=== PATIENT | male | born 1970 | race American Indian/Alaskan Native ===

== ENCOUNTER 2017-01-24 09:36 | Emergency (ER) | payer SELFPAY ==
[2017-01-24 09:47] VITALS: BP 149/107
[2017-01-24] MEDS ORDERED: ZITHROMAX PO ONE (10:36)
[2017-01-24] MEDS ORDERED: XYLOCAINE 1% MPF 5 mL INFILTRATI ONE (10:36)
[2017-01-24] MEDS ORDERED: ROCEPHIN IM ONE (10:36)
--- NOTE | 2017-01-24 10:41 | Emergency Department Report ---
ED Male HPI - General Chief complaint: Urogenital-Male Stated complaint: BURNING ON URINATION Time Seen by Provider: 01/24/17 10:34 Source: patient Mode of arrival: Ambulatory Limitations: No Limitations - History of Present Illness Initial comments: PT states he received unprotected oral sex almost 2 weeks ago. PT reports a gradual onset of dysuria x 5 days. PT states he not has dysuria with every urination. PT states he does not have a discharge/ rash/ or other other symptoms. MD Complaint: dysuria -: Gradual, days(s) Location: penis Severity scale (0 -10): 3 Quality: burning Consistency: constant Worsens with: urination denies other symptoms. denies: discharge, swelling, mass, rash, blood in urine , dysuria, nausea/vomiting - Related Data Sexually active: Yes Previous Rx's Medication Instructions Recorded Last Taken Type methOCARBAMOL [Robaxin] 500 mg PO BID #14 tab 09/29/13 Unknown Rx oxyCODONE /ACETAMINOPHEN [Percocet 1 tab PO Q6HR PRN #14 tablet 09/29/13 Unknown Rx 5/325 mg] Allergies Allergy/AdvReac Type Severity Reaction Status Date / Time shellfish derived Allergy Unknown Verified 09/29/13 04:23 ED Review of Systems ROS: Stated complaint: BURNING ON URINATION Other details as noted in HPI Comment: All other systems reviewed and negative Constitutional: denies: chills, fever Respiratory: denies: cough Cardiovascular: denies: chest pain Gastrointestinal: denies: abdominal pain, nausea, vomiting Genitourinary: as per HPI, dysuria. denies: discharge, testicular pain, testicular mass ED Past Medical Hx - Past Medical History Previous Medical History?: No - Surgical History Past Surgical History?: Yes Additional Surgical History: right shoulder pain and surgery - Social History Smoking Status: Current Every Day Smoker Substance Use Type: Alcohol, Non Opiate Pain - Medications Home Medications: Home Medications Medication Instructions Recorded Confirmed Last Taken Type methOCARBAMOL [Robaxin] 500 mg PO BID #14 tab 09/29/13 Unknown Rx oxyCODONE /ACETAMINOPHEN [Percocet 1 tab PO Q6HR PRN #14 tablet 09/29/13 Unknown Rx 5/325 mg] ED Physical Exam - General Limitations: No Limitations General appearance: alert, in no apparent distress - Head Head exam: Present: atraumatic, normocephalic, normal inspection - Eye Eye exam: Present: normal appearance, PERRL, EOMI. Absent: conjunctival injection - ENT ENT exam: Present: normal exam, TM's normal bilaterally - Neck Neck exam: Present: normal inspection, full ROM - Respiratory Respiratory exam: Present: normal lung sounds bilaterally. Absent: respiratory distress, wheezes, rales - Cardiovascular Cardiovascular Exam: Present: regular rate, normal rhythm, normal heart sounds - GI/Abdominal GI/Abdominal exam: Present: soft. Absent: tenderness - Extremities Exam Extremities exam: Present: normal inspection, full ROM - Back Exam Back exam: Present: normal inspection, full ROM. Absent: tenderness, CVA tenderness (R), CVA tenderness (L) - Neurological Exam Neurological exam: Present: alert, oriented X3, normal gait - Psychiatric Psychiatric exam: Present: normal affect, normal mood - Skin Skin exam: Present: warm, dry, intact ED Course Vital Signs 01/24/17 09:44 Temperature 98 F Pulse Rate 72 Respiratory 18 Rate Blood Pressure 149/107 O2 Sat by Pulse 99 Oximetry - Reevaluation(s) Reevaluation #1: 01/24/17 10:41 PT aware of plan of care. PT has no questions at this time. Reevaluation #2: 01/24/17 10:54 PT states the situation has him stressed and he believes that is why his bp is elevated. PT aware he will need to have his bp rechecked at follow up. - Pulse Oximetry Interpretation Digit-Finger Initial Pulse Oximetry Readin Actions Taken: none ED Medical Decision Making - Differential Diagnosis std, Critical Care Time: No Critical care attestation.: If time is entered above; I have spent that time in minutes in the direct care of this critically ill patient, excluding procedure time. ED Disposition Clinical Impression: Risky sexual behavior, Dysuria Disposition: DC-01 TO HOME OR SELFCARE Is pt being admited?: No Does the pt Need Aspirin: No Condition: Stable Instructions: Sexually Transmitted Diseases (ED), Safe Sex (ED) Additional Instructions: No sex X 7 days Use a barrier method to prevent STD transmission Your partners may need testing /treatment Follow up with your PCP in 3-5 days for BP recheck and full panel STD testing Follow up with medical records in 3-5 days for copies of your lab work Referrals: PRIMARY CARE, [Primary Care Provider] - 3-5 Days DICRISTINA,[place], MD [Staff Physician] - 3-5 Days [facility] [Outside] - 3-5 Days Time of Disposition: 10:43
== END 2017-01-24 11:29 | disposition home or self-care (01) ==
LOC: ED 09:36
DX: R30.0 Dysuria (principal); F17.200 Nicotine dependence, unspecified, uncomplicated; Z91.013 Allergy to seafood
CPT/HCPCS: 96372; 99282; J0696